=== PATIENT | male | born 1980 | race Caucasian/White ===

== ENCOUNTER 2018-01-29 10:49 | Day surgery (SDC) | payer BC ==
[~2018-01-29 10:49] MED LIST: Bupivacaine 25%/EPINEPHrine/PF 30 ML ONE; Lactated Ringers 1,000 ML IV SCH; ceFAZolin 2 GM in Premix Bag 1 BAG IV ONE
[2018-01-29] MEDS ORDERED: Midazolam 1 MG/ML 2 ML SDV ONE (13:12)
[2018-01-29] MEDS ORDERED: Propofol 200 MG/20 ML SDV ONE (13:12)
[2018-01-29] MEDS ORDERED: fentaNYL 100 MCG/2 ML SDV ONE (13:12)
[2018-01-29] MEDS ORDERED: Lidocaine 2% 5 ML SDV ONE (13:14)
[2018-01-29] MEDS ORDERED: ceFAZolin 1 GM Vial ONE (13:15)
--- NOTE | 2018-01-29 13:34 | PCM.PREANE ---
Preanesthetic Assessment - Anesthesia/Transfusion/Family Hx Anesthesia History: Prior Anesthesia Without Reaction Family History of Anesthesia Reaction: No Transfusion History: No Prior Transfusion(s) Intubation History: Unknown - Review of Systems General: No Symptoms Pulmonary: No Symptoms Cardiovascular: No Symptoms Gastrointestinal: No Symptoms Neurological: No Symptoms Other: Reports: None - Physical Assessment O2 Sat by Pulse Oximetry: 96 Respiratory Rate: 16 Vital Signs: Last Vital Signs Temp 36 C 01/29/18 11:05 Pulse 64 01/29/18 11:05 Resp 16 01/29/18 11:05 BP 144/73 H 01/29/18 11:05 Pulse Ox 96 01/29/18 11:05 Height: 1.8 m Weight: 93.44 kg ASA Class: 1 Mental Status: Alert & Oriented x3 Airway Class: Mallampati = 3 Dentition: Reports: Normal Dentition Thyro-Mental Finger Breadths: 2 Mouth Opening Finger Breadths: 2 ROM/Head Extension: Full Lungs: Clear to Auscultation, Normal Respiratory Effort Cardiovascular: Regular Rate, Regular Rhythm - Allergies Allergies/Adverse Reactions: Allergies Allergy/AdvReac Type Severity Reaction Status Date / Time No Known Allergies Allergy Verified 01/24/18 08:25 - Blood Blood Available: No - Anesthesia Plan Pre-Op Medication Ordered: None - Acknowledgements Anesthesia Type Planned: General Anesthesia Pt an Appropriate Candidate for the Planned Anesthesia: Yes Alternatives and Risks of Anesthesia Discussed w Pt/Guardian: Yes Pt/Guardian Understands and Agrees with Anesthesia Plan: Yes PreAnesthesia Questionnaire HEENT History: Reports: Other (See Below) Other HEENT History: has upper partial removable denture Musculoskeletal History: Reports: Fracture - Past Surgical History HEENT Surgical History: Reports: Other (See Below) Other HEENT Surgeries/Procedures: previous removable of head mass Musculoskeletal Surgical History: Reports: ORIF Other Musculoskeletal Surgeries/Procedures:: hx of ORIF left wrist (has plate and screws) - SUBSTANCE USE Smoking Status *Q: Former Smoker Recreational Drug Use History: No - HOME MEDS Home Medications: Home Meds . [No Known Home Meds] 01/24/18 [History] - CURRENT (IN HOUSE) MEDS Current Meds: Current Medications Lactated Ringer's (Ringers, Lactated) 1,000 mls @ 125 mls/hr IV ASDIRECTED LATASHA Last Admin: 03/06/18 11:06 Dose: 125 mls/hr Discontinued Medications Cefazolin Sodium (Ancef) Confirm Administered Dose 2 gm .ROUTE .STK-MED ONE Stop: 01/29/18 13:16 Fentanyl (Sublimaze) Confirm Administered Dose 100 mcg .ROUTE .STK-MED ONE Stop: 01/29/18 13:13 Cefazolin Sodium/Dextrose 2 gm (/ Premix) 50 mls @ 100 mls/hr IV ONETIME ONE Stop: 01/29/18 05:29 Bupivacaine HCl/Epinephrine Bitart (Sensorc Mpf 0.25%-Epi [id number]) Confirm Administered Dose 30 mls @ as directed .ROUTE .STK-MED ONE Stop: 01/29/18 07:27 Lidocaine (Xylocaine-Mpf 2%) Confirm Administered Dose 5 ml .ROUTE .STK-MED ONE Stop: 01/29/18 13:15 Midazolam HCl (Versed 1 Mg/Ml) Confirm Administered Dose 2 mg .ROUTE .STK-MED ONE Stop: 01/29/18 13:13 Propofol (Diprivan 20 Ml) Confirm Administered Dose 200 mg .ROUTE .STK-MED ONE Stop: 01/29/18 13:13
[2018-01-29] MEDS ORDERED: diphenhydrAMINE 50 MG/ML SDV ONE (14:07)
[2018-01-29] MEDS ORDERED: Ondansetron 4 MG/2 ML SDV ONE (14:07)
--- NOTE | 2018-01-29 15:13 | PCM.OPNOTE ---
- General Post-Op/Procedure Note Date of Surgery/Procedure: 01/29/18 Operative Procedure(s): head mass excisional bx Findings: cheese like sebacious cyst, 2 cm, incision 3.5 cm; [id number] Pre Op Diagnosis: head mass Post-Op Diagnosis: Same Anesthesia Technique: General LMA Primary Surgeon: Justin Blas Pathology: sent Complications: None Condition: Good Free Text/Narrative:: Intake & Output 01/29/18 01/29/18 01/29/18 06:59 14:59 22:59 Intake Total 750 Balance 750
--- NOTE | 2018-01-30 09:01 | OR ---
SURGEON: Justin Blas MD DATE OF PROCEDURE: 01/29/2018 PREOPERATIVE DIAGNOSIS: Head mass. POSTOPERATIVE DIAGNOSIS: Head mass. PROCEDURE PERFORMED: Excisional biopsy. COMPLICATIONS: None. FINDING: A mass about 2 cm, well encapsulated and with cheeselike whitish material consistent with sebaceous cyst. PROCEDURE IN DETAIL: The patient was taken to the operating room and placed in supine position. Upon induction of general endotracheal anesthesia, the patient was put in a supine position, status post LMA. The patient's head mass was prepped and draped in sterile fashion. Prior to coming to the operating room, the patient had shaved the hair. The mass is a little bit toward the right side of the midline, toward the front about 2 cm from the hairline, and is 2 cm in diameter. Using a skin scalpel, a fish-mouth incision was made 3.5 cm in length, and the mass was excised from the scalp and sent for pathology. On opening up, there was cheesy whitish material. The mass itself was 2.0 cm, and the skin incision is 3.5 cm. Following hemostasis by using electrocautery, the wound was closed with 3-0 Ethilon baseball locking interrupted stitches, followed with bacitracin. The patient was then awakened, extubated, and transferred to recovery in good stable condition. The patient tolerated the procedure well. There were no intraoperative complications. Dr. Blas was present through the whole procedure. As always, thank you for the kind referral. RUTH / SAWRAT /[id number]
== END 2018-01-29 15:52 | disposition home or self-care (01) ==
LOC: MW.SDS 10:49
PROVIDERS: ATTEND Surgery
DX: L72.11 Pilar cyst (principal); F17.210 Nicotine dependence, cigarettes, uncomplicated
CPT/HCPCS: 11422; 88304; J0690; J1200; J2250; J2405; J3010; J7120; 00300; J2704

== ENCOUNTER 2022-06-03 18:49 | Emergency (ER) | payer OTHER, BC ==
[2022-06-03] MEDS ORDERED: Bacitracin Oint 1 GM U/D Packet TOP ONE (22:28)
[2022-06-03] MEDS ORDERED: Ibuprofen 600 MG Tab PO ONE (22:28)
[2022-06-03] MEDS ORDERED: Acetaminophen/HYDROcodone 325-5 MG Tab PO ONE (22:29)
== END 2022-06-03 22:58 | disposition home or self-care (01) ==
LOC: MW.ED 18:49
DX: S62.394A Other fracture of fourth metacarpal bone, right hand, initial encounter for closed fracture (principal); S62.396A Other fracture of fifth metacarpal bone, right hand, initial encounter for closed fracture; S50.812A Abrasion of left forearm, initial encounter; V29.9XXA Motorcycle rider (driver) (passenger) injured in unspecified traffic accident, initial encounter
CPT/HCPCS: 29125; 73130; 99283; A9270; 99284